=== PATIENT | female | born 1995 | race Caucasian/White ===

== ENCOUNTER 2020-09-02 13:46 | Emergency (ER) | payer MEDICAID, SELFPAY ==
[2020-09-02 14:03] VITALS: BP 122/0; BP 123/99; PULSE 70; PULSE 72; RESP 16; TEMP 36.6; O2SAT 100; BMI 25.7
--- NOTE | 2020-09-02 19:57 | PC.NURSE ---
pt bhas been sleeping in the waiting room soundly with no nausea or vomiting
--- NOTE | 2020-09-02 21:02 | PC.NURSE ---
pt woke, several family members attempted to come into the ER together to visit Pt in waiting area.. Staff asked family to please wait and have just one family with the pt. Pt approached the desk and states she wants something to eat, also complaining of nausea. Explained to pt that she should refrain from eating while having nausea to prevent vomiting. Pt became loud and agitated but did calm after speaking with nurse, then moments later continued to ask for food and report nausea. Agin reinforced that pt should not eat. Pt increasingly loud despite attempts to calm her. Security approached pt and family who were gathered at the entrance. Security asked family to step outside, pt became agitated, swearing and threatening. Securioty asked pt to leave. Pt became combative with security. Security escorted pt outside and then asked RN to call police. Pt outside screaming and swearing. RN called [employer]. Pt did not calm to return to ER for treatment.
== END 2020-09-02 21:13 | disposition left against medical advice (07) ==
PROVIDERS: Emergency Provider Emergency Medicine
DX: R11.2 Nausea with vomiting, unspecified (principal)
CPT/HCPCS: 99282

== ENCOUNTER 2021-07-11 13:58 | Emergency (ER) | payer OTHER, MEDICAID, SELFPAY ==
--- NOTE | ~2021-07-11 | CT_ITS ---
EXAMINATION: CT ABDOMEN AND PELVIS WITH CONTRAST CLINICAL INFORMATION: Vomiting and abdominal discomfort COMPARISON: None TECHNIQUE: Multidetector volumetric images were obtained from the superior aspect of the liver through the pubic symphysis following administration 85 mL of Omnipaque 350 intravenous contrast. Sagittal and coronal reformatted images were obtained on the technologist's workstation. Oral contrast: No This CT examination was performed using dose optimization techniques as appropriate, variously including the following: *Automated exposure control *Adjustment of mA and/or kV according to patient size (this includes techniques or standardized protocols for targeted exams where dose is matched to indication/reason for exam; i.e. extremities or head) *Use of iterative reconstruction technique DLP: 510 mGy-cm FINDINGS: LUNG BASES: The visualized lung bases are unremarkable. LIVER, GALLBLADDER, AND BILIARY TREE: The liver is normal in size, shape, and attenuation. No focal hepatic lesion or biliary ductal dilatation is present. The gallbladder is unremarkable with no evidence of radiopaque gallstones, gallbladder wall thickening, or obvious pericholecystic inflammatory changes. PANCREAS: Unremarkable. SPLEEN: Unremarkable. ADRENAL GLANDS: Unremarkable. KIDNEYS AND URETERS: The kidneys are normal in size, shape, and attenuation. No hydronephrosis, hydroureter, or calculi seen. No perinephric stranding. BLADDER: Unremarkable. GASTROINTESTINAL TRACT: The small and large bowel are unremarkable. It should be noted normal appendix is not visualized.. Mild dilatation of the duodenum. The aortic SMA distance is approximately 3 mm. An element of cracker cannot be excluded ABDOMINAL WALL: No significant hernia is appreciated. LYMPH NODES: Normal. VASCULAR: Unremarkable. PELVIC VISCERA: Minimal free fluid may be physiologic. OSSEOUS STRUCTURES: Unremarkable. CT/CT abdomen pelvis w con IMPRESSION: Some dilatation of the duodenum to the level of the midline crossing. The aortic to SMA distance is 3 mm. Element of nutcracker syndrome cannot be excluded. Bowel pattern is otherwise nonobstructing. No free fluid.
[2021-07-11 14:34] VITALS: BP 113/79; PULSE 51; RESP 19; TEMP 36.3; O2SAT 100; BMI 25.2
[2021-07-11] MEDS: Ondansetron ODT 4 MG TAB.RAPDIS TRANSLINGU (14:39)
[2021-07-11 16:05] LABS: MANUAL DIFF FLAG NO
[2021-07-11 16:07] LABS: Basophils Absolute Auto 0.1 X10*3/uL (0.0-0.2); Basophils Percent Auto 0.5 % (0-2); Imm Gran Abs Auto 0.04 X10*3/uL (0.00-0.03); Imm Gran Pct Auto 0.3 % (0.0-0.4); Lymphocytes Percent Auto 8.3 % (20-40); Mean Corpuscular HGB Conc 33.3 g/dl (31.0-35.0); Mean Corpuscular Hemoglobin 30.2 pg (27.0-33.0); Mean Corpuscular Volume 90.5 fL (80.0-98.0); Mean Platelet Volume 11.5 fL (9.4-12.3); Monocytes Absolute Auto 0.4 X10*3/uL (0.1-1.2); Monocytes Percent Auto 3.8 % (2-11); Neutrophils Absolute Auto 10.1 x10*3/uL (2.0-8.3); Neutrophils Percent Auto 87.1 % (45-73); Platelet Count 276 X10*3/uL (160-400); Red Blood Count 4.31 X10*6/uL (4.20-5.50); Red Cell Distribution Width 13.2 % (11.0-16.0); White Blood Count 11.6 X10*3/uL (4.8-10.8)
[2021-07-11 16:28] LABS: Alanine Aminotransferase 13 U/L (0-31); Albumin Level 4.7 g/dL (3.5-5.0); Alkaline Phosphatase 83 U/L (39-117); Anion Gap 16 (12-20); Aspartate Amino Transferase 17 U/L (5-31); Bilirubin Direct 0.2 mg/dL (0.0-0.5); Bilirubin Total 0.3 mg/dL (0.0-1.0); Blood Urea Nitrogen 9 mg/dL (9-16); Calcium 9.8 mg/dL (8.4-10.2); Carbon Dioxide 23 mmol/L (22-29); Chloride 105 mmol/L (96-108); Creatinine Clr Calc Pharmacy 119.3; Estimated Glomerular Filt Rate > 60; Glucose Random 124 mg/dL (60-115); Lipase 10 U/L (8-78); Potassium 3.8 mmol/L (3.3-5.1); Sodium 140 mmol/L (135-145); Total Protein 7.8 g/dL (6.5-8.0)
[2021-07-11 20:02] VITALS: BP 124/83; PULSE 58; RESP 18; TEMP 36.9; O2SAT 100
--- NOTE | 2021-07-11 20:08 | ED.GENADULT ---
HPI - General Adult General Chief complaint: Nausea/Vomiting/Diarrhea Stated complaint: back pain Time Seen by Provider: 07/11/21 18:31 Source: patient Mode of arrival: ambulatory Limitations: no limitations History of Present Illness HPI narrative: 26-year-old female is here today for complaining of nausea and vomiting that started yesterday. Patient reports that she vomited several times. Denies fever or chills. Reports to lower back pain. Today she reports that she was unable to urinate and she feels dehydrated. Patient unable to keep any fluids down. Reports of mid to low abdominal discomfort. Denies dyspepsia, dysphagia or odynophagia. Reports that in the last few days her bowels were lose. And usually she reports that her bowels are normal. Patient denies any ill contacts. Denies any travel. Denies any change in her diet. Onset (ago): day(s) Related Data Previous Rx's Medication Instructions Recorded ondansetron 4 mg disintegrating 4 mg PO Q8H PRN #7 tab 07/11/21 tablet Allergies Allergy/AdvReac Type Severity Reaction Status Date / Time No Known Allergies Allergy Unverified 05/10/20 17:05 Review of Systems Review of Systems: Constitutional : No Weight loss, No Fever, No Chills, No Night Sweats, No Fatigue, No Malaise ENT/Mouth : No Hearing loss, No Ear Pain, No Nasal Congestion, No Sinus Pain, No Hoarseness, No sore throat, No Rhinorrhea, No Swallowing Difficulty Eyes: No Eye Pain, No Swelling, No Redness, No Foreign Body, No Discharge, No Vision Changes Cardiovascular : No Chest Pain, No SOB, No Dyspnea on Exertion, No Orthopnea, No Edema, No Palpitations Respiratory : No Cough, No Sputum, No Wheezing, No Smoke Exposure, No Dyspnea Gastrointestinal : Nausea, Vomiting, No Diarrhea, No Constipation, abdominal Pain, No Hematochezia, No Melena Genitourinary : no irregular bleeding, Dysuria, No Urinary Frequency, No Hematuria, No Urinary Incontinence, No Urgency, No Flank Pain, No Urinary Flow Changes, No Hesitancy Musculoskeletal : No joint pain, No Myalgias, No Joint Swelling Skin : No Skin Lesions, No rash Neuro : No Weakness, No Numbness, No Paresthesias, No Loss of Consciousness, No Dizziness, No Headache Psych : No Anxiety/Panic, No Depression, No SI/HI/AH/VH, No Social Issues, Yes all other systems are reviewed and are negative PMFSH Past Medical History Medical History (Updated 07/11/21 @ 21:37 by Keyla Mauro [facility]) Asthma Social History Social History Advance Directives: No Advance Directives Information Provided: No Patient : No Physical Exam Vital Signs: Vital Signs: Last Vital Signs Temp 98.5 F 07/11/21 20:02 Pulse 58 07/11/21 20:02 Resp 18 07/11/21 20:02 BP 124/83 07/11/21 20:02 Pulse Ox 100 07/11/21 20:02 Body Mass Index 25.2 Const: General: healthy appearing, no acute distress and well developed Nutritional Appearance: well nourished Orientation/consciousness: patient oriented x3 HENMT: Head: Yes normal to inspection, Yes normocephalic and Yes atraumatic Face and sinus: Yes normal facial exam Mouth: Normal oral and palatal mucosa present Throat: Yes posterior oropharynx normal, Yes tonsils normal and Yes uvula midline Eyes: General: appearance normal, both eyes and all related structures Neck: Neck: Yes normal visual inspection, Yes full ROM and Yes trachea midline Thyroid: Thyroid normal Resp: Effort & Inspection: normal respiratory effort, able to speak in complete sentences, no tracheal deviation and symmetric chest movement Auscultation: clear to auscultation bilaterally Cardio: Jugular venous distension: no JVD Rate: regular rate Rhythm: regular rhythm Heart sounds: S1 normal heart sound present, S2 normal heart sound present, no gallops and no murmurs GI: Inspection: Yes normal to inspection and No distended Palpation (GI): Soft to palpation, not firm, nontender and No hepatosplenomegaly present Auscultation: normal bowel sounds : General: Yes no CVA tenderness Back/Spine/Pelvis: Back: no CVA tenderness Skin: General skin exam: elasticity normal, turgor normal and dry skin Neuro: General: patient oriented x3 Psych: Appearance: grossly normal Mental Status: mental status grossly normal Speech and movement: Normal speech and movement present Affect: normal affect Attitude: cooperative Thought process: Normal thought process present Thought content: Normal thought content present Insight: Good insight present (Psych) Judgement: Good judgement present (Psych) Course Course Course Narrative: 26-year-old female is here today for nausea and vomiting that started yesterday. Patient reports also that she has been having low back pain. Patient denies any injury, however she does report that she is bending over when she is vomiting and she has done that several times yesterday and today. Patient reports that she has not urinated much today. Patient denies any ill contacts. No travel, no change in her diet. Patient reports that usually she has a normal bowel movements and in the last few days her bowels were more loose, reports to have a mid to low abdominal pain that is not radiating anywhere. Patient has no CVA tenderness, no abdominal tenderness, will get urine, CBC shows WBC 11.6. Neutrophil 87.1. Normal kidney function as well as liver profile. Will medicate her with Zofran, IV fluids get urine for urinalysis and . Will order CT scan with IV contrast to rule out IBD, cholecystitis. Reevaluation(s) Reevaluation #1: Urinalysis is negative for any abnormalities. Awaiting CT scan results. Patient reports that she is feeling much better after the Zofran. Medical Decision Making Lab Data Result diagrams: 07/11/21 16:07/11/21 16:01 Labs: Lab Results 07/11/21 07/11/21 07/11/21 Range/Units 16: 16:01 20:53 WBC 11.6 H (4.8-10.8) X10*3/uL RBC 4.31 (4.20-5.50) X10*6/uL Hgb 13.0 (12.0-16.0) g/dl Hct 39.0 (37.0-47.0) % MCV 90.5 (80.0-98.0) fL MCH 30.2 (27.0-33.0) pg MCHC 33.3 (31.0-35.0) g/dl RDW 13.2 (11.0-16.0) % Plt Count 276 (160-400) X10*3/uL MPV 11.5 (9.4-12.3) fL Immature Gran % (Auto) 0.3 (0.0-0.4) % Neut % (Auto) 87.1 H (45-73) % Lymph % (Auto) 8.3 L (20-40) % [place] % (Auto) 3.8 (2-11) % Eos % (Auto) 0.0 (0-4) % Baso % (Auto) 0.5 (0-2) % Lymph # (Auto) 1.0 L (1.2-4.9) X10*3/uL [place] # (Auto) 0.4 (0.1-1.2) X10*3/uL Eos # (Auto) 0.0 (0.0-0.4) X10*3/uL Baso # (Auto) 0.1 (0.0-0.2) X10*3/uL Abs Immat Gran (auto) 0.04 H (0.00-0.03) X10*3/uL Absolute Neuts (auto) 10.1 H (2.0-8.3) x10*3/uL Absolute Nucleated RBC 0.000 (0.0-0.012) X10*3/uL Nucleated RBC % (auto) 0.0 (0.0-0.2) /100WBC Sodium 140 (135-145) mmol/L Potassium 3.8 (3.3-5.1) mmol/L Chloride 105 (96-108) mmol/L Carbon Dioxide 23 (22-29) mmol/L Anion Gap 16 (12-20) BUN 9 (9-16) mg/dL Creatinine 0.68 (0.5-1.4) mg/dL Estim Creat Clear Calc 119.3 Estimated GFR > 60 Random Glucose 124 H (60-115) mg/dL Calcium 9.8 (8.4-10.2) mg/dL Total Bilirubin 0.3 (0.0-1.0) mg/dL Direct Bilirubin 0.2 (0.0-0.5) mg/dL AST 17 (5-31) U/L ALT 13 (0-31) U/L Alkaline Phosphatase 83 (39-117) U/L Total Protein 7.8 (6.5-8.0) g/dL Albumin 4.7 (3.5-5.0) g/dL Lipase 10 (8-78) U/L Urine Color YELLOW Urine Appearance CLEAR Urine pH 8.0 (5.0-8.0) Ur Specific [place] 1.015 (1.005-1.025) Urine Protein 1+ H (NEG-TRACE) MG/DL Urine Glucose (UA) NEG (NEG) MG/DL Urine Ketones 5 (NEG) MG/DL Urine Blood NEG (NEG) Urine Nitrite NEG (NEG) Ur Leukocyte Esterase NEG (NEG) Urine RBC 0 (0) /HPF Urine WBC 0-2 (0-4) /HPF Ur Squamous Epith Cells 2+ /LPF Amorphous Sediment 1+ /LPF Urine Bacteria TRACE /LPF Urine Mucus 1+ /LPF Urine Test (NEGATIVE) COVID-19 (GAIL) (Negative) COVID-19 Clin Com 07/11/21 07/11/21 Range/Units 20:53 20:55 WBC (4.8-10.8) X10*3/uL RBC (4.20-5.50) X10*6/uL Hgb (12.0-16.0) g/dl Hct (37.0-47.0) % MCV (80.0-98.0) fL MCH (27.0-33.0) pg MCHC (31.0-35.0) g/dl RDW (11.0-16.0) % Plt Count (160-400) X10*3/uL MPV (9.4-12.3) fL Immature Gran % (Auto) (0.0-0.4) % Neut % (Auto) (45-73) % Lymph % (Auto) (20-40) % [place] % (Auto) (2-11) % Eos % (Auto) (0-4) % Baso % (Auto) (0-2) % Lymph # (Auto) (1.2-4.9) X10*3/uL [place] # (Auto) (0.1-1.2) X10*3/uL Eos # (Auto) (0.0-0.4) X10*3/uL Baso # (Auto) (0.0-0.2) X10*3/uL Abs Immat Gran (auto) (0.00-0.03) X10*3/uL Absolute Neuts (auto) (2.0-8.3) x10*3/uL Absolute Nucleated RBC (0.0-0.012) X10*3/uL Nucleated RBC % (auto) (0.0-0.2) /100WBC Sodium (135-145) mmol/L Potassium (3.3-5.1) mmol/L Chloride (96-108) mmol/L Carbon Dioxide (22-29) mmol/L Anion Gap (12-20) BUN (9-16) mg/dL Creatinine (0.5-1.4) mg/dL Estim Creat Clear Calc Estimated GFR Random Glucose (60-115) mg/dL Calcium (8.4-10.2) mg/dL Total Bilirubin (0.0-1.0) mg/dL Direct Bilirubin (0.0-0.5) mg/dL AST (5-31) U/L ALT (0-31) U/L Alkaline Phosphatase (39-117) U/L Total Protein (6.5-8.0) g/dL Albumin (3.5-5.0) g/dL Lipase (8-78) U/L Urine Color Urine Appearance Urine pH (5.0-8.0) Ur Specific [place] (1.005-1.025) Urine Protein (NEG-TRACE) MG/DL Urine Glucose (UA) (NEG) MG/DL Urine Ketones (NEG) MG/DL Urine Blood (NEG) Urine Nitrite (NEG) Ur Leukocyte Esterase (NEG) Urine RBC (0) /HPF Urine WBC (0-4) /HPF Ur Squamous Epith Cells /LPF Amorphous Sediment /LPF Urine Bacteria /LPF Urine Mucus /LPF Urine Test NEGATIVE (NEGATIVE) COVID-19 (GAIL) Negative (Negative) COVID-19 Clin Com See Note Discharge Plan Discharge Clinical Impression: Gastroenteritis Instructions: Acute Nausea and Vomiting (ED) Prescriptions: New ondansetron 4 mg tablet,disintegrating 4 mg PO Q8H PRN (Reason: nausea and vomiting) Qty: 7 RF: 0 Stand Alone Forms: Work/School Release
[2021-07-11] MEDS: 0.9 % Sodium Chloride 1,000 ML 999 ML IV (20:24)
[2021-07-11] MEDS: ondansetron HCL 4 MG/2 ML VIAL IVPUSH (20:24)
[2021-07-11 21:03] LABS: Appearance Urine CLEAR; Color Urine YELLOW; Glucose Urine UA NEG (NEG); Leukocyte Esterase Urine NEG (NEG); Nitrite Urine NEG (NEG); Specific Gravity - Urine 1.015 (1.005-1.025); UACC Culture Trigger NO; Urine Blood NEG (NEG); Urine Ketones 5 MG/DL (NEG); Urine Protein 1+ MG/DL (NEG-TRACE)
[2021-07-11 21:05] LABS: UPreg QC Valid YES; Urine Pregnancy NEGATIVE (NEGATIVE)
[2021-07-11 21:14] LABS: Amorphous Sediment Urine 1+ /LPF; Mucus Urine 1+ /LPF; Squamous Epithelial Cell Urine 2+ /LPF
[2021-07-11 21:15] LABS: Bacteria Urine TRACE /LPF; RBC Urine 0 /HPF (0); WBC Urine 0-2 /HPF (0-4)
[2021-07-11 21:18] LABS: COVID-19 Test Negative (Negative)
[2021-07-11] MEDS: iohexoL 350 MG/ML 100 ML INFUS..BTL IV (21:37)
[2021-07-11 22:51] VITALS: BP 122/76; PULSE 56; RESP 18; TEMP 36.7; O2SAT 100
== END 2021-07-11 23:02 | disposition home or self-care (01) ==
PROVIDERS: Nurse Practitioner Family; Emergency Provider Emergency Medicine
DX: K52.9 Noninfective gastroenteritis and colitis, unspecified (principal); R11.2 Nausea with vomiting, unspecified; M54.50 Low back pain, unspecified; Z20.822 Contact with and (suspected) exposure to COVID-19
CPT/HCPCS: 36415; 74177; 80048; 80076; 81001; 81003; 81025; 83690; 85025; 87635; 96361; 96374; 99283; 99284; J2405; Q9967

== ENCOUNTER 2022-07-14 14:06 | Emergency (ER) | payer OTHER, MEDICAID, SELFPAY ==
[2022-07-14 14:34] VITALS: BP 118/78; PULSE 66; O2SAT 99
[2022-07-14 14:55] VITALS: BP 112/67; PULSE 62; RESP 18; TEMP 37.2; O2SAT 98; BMI 25.8
[2022-07-14 15:20] LABS: Hematocrit 36.4 % (37.0-47.0); Hemoglobin 11.8 g/dl (12.0-16.0); Mean Corpuscular HGB Conc 32.4 g/dl (31.0-35.0); Mean Corpuscular Hemoglobin 29.6 pg (27.0-33.0); Mean Corpuscular Volume 91.5 fL (80.0-98.0); Mean Platelet Volume 10.6 fL (9.4-12.3); Platelet Count 267 X10*3/uL (160-400); Red Blood Count 3.98 X10*6/uL (4.20-5.50); Red Cell Distribution Width 12.8 % (11.0-16.0); White Blood Count 14.7 X10*3/uL (4.8-10.8)
[2022-07-14 15:34] VITALS: BP 118/79; PULSE 76; RESP 14; TEMP 36.8; O2SAT 98
[2022-07-14 15:38] LABS: Anion Gap 12 (12-20); Blood Urea Nitrogen 6 mg/dL (9-16); Calcium 9.3 mg/dL (8.4-10.2); Carbon Dioxide 27 mmol/L (22-29); Chloride 102 mmol/L (96-108); Creatinine Clr Calc Pharmacy 151.2; Estimated Glomerular Filt Rate > 60; Glucose Random 87 mg/dL (60-115); Potassium 4.1 mmol/L (3.3-5.1); Sodium 137 mmol/L (135-145)
--- NOTE | 2022-07-14 16:16 | ED_ITS ---
HPI - Skin/Abscess/Foreign Bdy General Chief complaint: Skin/Abscess/Foreign Body Stated complaint: L EYE PAIN PER EMS Time Seen by Provider: 07/14/22 15:50 Source: patient Mode of arrival: ambulatory Limitations: no limitations History of Present Illness HPI narrative: This is a 27-year-old female who has previously healthy who presents with left facial swelling, redness for the last 2-3 days. Per patient she had a large pimple on her left cheek which she tried to pop on her own. She was able to get a small amount of pus out. However that night increasing swelling and pain to the face. Seen her primary care referred into the emergency room for further evaluation. Patient reports swelling and pain up to the left eye with some eye discomfort. No vision changes. No drainage from the eye. No fevers or chills. Related Data Previous Rx's Medication Instructions Recorded ondansetron 4 mg disintegrating 4 mg PO Q8H PRN nausea and 07/11/21 tablet vomiting #7 tabs clindamycin HCl 300 mg capsule 300 mg PO Q8H 7 days #21 caps 07/14/22 Allergies Allergy/AdvReac Type Severity Reaction Status Date / Time No Known Allergies Allergy Unverified 05/10/20 17:05 Review of Systems Review of Systems: Yes all other systems are reviewed and are negative Constitutional: Constitutional: Reports no additional constitutional complaints, Denies body ache(s), Denies chills, Denies fever(s), Denies headache(s) and Denies weakness Eyes: Eyes: Reports no additional eye complaints, Denies change in vision, Denies eye discharge, Denies irritation, Reports eye pain and Denies photophobia ENT: Reports system reviewed and no additional complaints, except as documented, Denies dizziness, Reports facial pain, Denies headache(s), Denies nasal congestion, Denies nasal discharge and Denies neck pain Cardiovascular: Cardiovascular: Reports no additional cardiovascular complaints, Denies chest pain, Denies leg edema and Denies dyspnea Respiratory: Respiratory: Reports no additional respiratory complaints, Denies cough and Denies dyspnea Gastrointestinal: Gastrointestinal: Reports no additional gastrointestinal complaints, Denies abdominal pain, Denies diarrhea, Denies nausea and Denies vomiting Genitourinary: Genitourinary: Reports no additional female genitourinary complaints and Denies urinary incontinence Musculoskeletal: Musculoskeletal: Reports no additional musculoskeletal complaints, Denies back pain, Denies arthralgias, Denies joint swelling, Denies neck pain, Denies numbness and Denies tingling Integumentary/Breasts: Skin/Breast: Reports system reviewed and no additional complaints, except as docu and Denies rash Neurologic: Reports system reviewed and no additional complaints, except as documented, Denies Abnormal speech present, Denies dizziness, Denies headache(s), Denies numbness, Denies tingling and Denies weakness [facility] Past Medical History Attestation statement: The following information was validated with the patient. Source: old records reviewed and nursing notes reviewed Medical History Asthma Social History Social History Advance Directives: No Advance Directives Information Provided: No Physical Exam Vital Signs: Vital Signs: Last Vital Signs Temp 98.3 F 07/14/22 15:34 Pulse 76 07/14/22 15:34 Resp 14 07/14/22 15:34 BP 118/79 07/14/22 15:34 Pulse Ox 98 07/14/22 15:34 O2 Del Method 07/14/22 15:34 BMI result Body Mass Index 25.8 Const: General: cooperative, healthy appearing, comfortable and no acute distress Orientation/consciousness: patient oriented x3 Limitations: no limitations HEENT: Head: Yes normal to inspection Ears: hearing grossly normal bilaterally and TM's normal bilaterally General nose exam: Normal external nose present Face and sinus: Yes normal facial exam Face images: 1. There is a central area of crusting with surrounding erythema, warmth, induration. This extends to the lower eyelid on the left eye. Mouth: Normal oral and palatal mucosa present Throat: Yes posterior oropharynx normal, Yes tonsils normal and Yes uvula midline Eyes: General: appearance normal, both eyes and all related structures Visual South: normal visual south by confrontation Alignment and Position: alignment normal Periorbital: periorbital findings normal Eyelids: Yes other (Slight swelling to left lower eyelid) Conjunctivae: conjunctivae normal Sclerae: sclerae normal Corneas: corneas normal Pupils: Equal, round and reactive pupils present EOM: EOMs intact bilaterally Direct Ophthalmoscopy: normal light reflex, no photophobia, no papilledema, fundi normal bilaterally, anterior chamber normal and No photophobia Neck: Neck: Yes normal visual inspection, Yes full ROM, Yes no lymphadenopathy and Yes no meningeal signs Chest: Chest palpation & inspection: normal inspection of the chest Resp: Effort & Inspection: normal respiratory effort Auscultation: clear to auscultation bilaterally Cardio: Rate: regular rate Rhythm: regular rhythm Peripheral pulses: Peripheral pulses 2+ throughout GI: Inspection: Yes normal to inspection Palpation (GI): Soft to palpation and nontender Auscultation: normal bowel sounds Back/Spine/Pelvis: Thoracic/Lumbar Spine: thoracic and lumbar spine normal to inspection Skin: General skin exam: no rashes or lesions noted Neuro: General: patient oriented x3, no meningeal signs, no focal motor deficits and normal sensation to monofilament Cranial nerves: Yes Equal, round and reactive pupils present Cognition (Neuro): normal cognition Speech: No Abnormal speech present Gait exam (Neuro): Normal gait present Motor exam (neuro): 5/5 motor strength present throughout Extrem: General: Yes normal to inspection Course Course Course Narrative: Patient refusing CT scan. She does not want a wait for the CT scan. Additionally she does not want to remove her facial jewelry. She is aware that may she have a deeper abscess or osteomyelitis the facial bones secondary to cellulitis. This would require admission and IV antibiotics and possible surgery. Patient declining all these things. Will leave against medical advice. Will send oral antibiotics. Patient is welcome to return any time. Medications Administered Discontinued Medications Generic Name Dose Route Start Last Admin Trade Name Freq PRN Reason Stop Dose Admin Clindamycin Phosphate 600 mg in 50 mls @ 100 mls/hr 07/14/22 16:11 07/14/22 17:13 Cleocin IV 07/14/22 16:40 100 mls/hr ONCE ONE Administration MDM - Skin/Abscess/Foreign Bdy MDM Narrative Medical decision making narrative: 1611-This is a 27-year-old female who presents with left facial cellulitis. Patient will need labs including blood cultures and lactic acid. Will need CT facial bones to eval for deeper abscess. At this time infection suspected. Antibiotics ordered Low concern for orbital cellulitis with no vision changes or difficulty with eye movement. Medical Records Attestation: I reviewed the patient's medical records. Lab Data Attestation: I reviewed the patient's lab results. Result diagrams: 07/14/22 15:11 07/14/22 15:11 Labs: Lab Results 07/14/22 07/14/22 07/14/22 Range/Units 15:11 15:11 16:53 WBC 14.7 H (4.8-10.8) X10*3/uL RBC 3.98 L (4.20-5.50) X10*6/uL Hgb 11.8 L (12.0-16.0) g/dl Hct 36.4 L (37.0-47.0) % MCV 91.5 (80.0-98.0) fL MCH 29.6 (27.0-33.0) pg MCHC 32.4 (31.0-35.0) g/dl RDW 12.8 (11.0-16.0) % Plt Count 267 (160-400) X10*3/uL MPV 10.6 (9.4-12.3) fL Absolute Nucleated RBC 0.000 (0.0-0.012) X10*3/uL Nucleated RBC % (auto) 0.0 (0.0-0.2) /100WBC Sodium 137 (135-145) mmol/L Potassium 4.1 (3.3-5.1) mmol/L Chloride 102 (96-108) mmol/L Carbon Dioxide 27 (22-29) mmol/L Anion Gap 12 (12-20) BUN 6 L (9-16) mg/dL Creatinine 0.58 (0.5-1.4) mg/dL Estim Creat Clear Calc 151.2 Estimated GFR > 60 Random Glucose 87 (60-115) mg/dL Lactic Acid (0.5-2.0) mmol/L Calcium 9.3 (8.4-10.2) mg/dL Total Bilirubin 0.5 (0.0-1.0) mg/dL Direct Bilirubin 0.2 (0.0-0.5) mg/dL AST 14 (5-31) U/L ALT 10 (0-31) U/L Alkaline Phosphatase 75 (39-117) U/L Total Protein 7.0 (6.5-8.0) g/dL Albumin 4.2 (3.5-5.0) g/dL 11/21/22 Range/Units 16:53 WBC (4.8-10.8) X10*3/uL RBC (4.20-5.50) X10*6/uL Hgb (12.0-16.0) g/dl Hct (37.0-47.0) % MCV (80.0-98.0) fL MCH (27.0-33.0) pg MCHC (31.0-35.0) g/dl RDW (11.0-16.0) % Plt Count (160-400) X10*3/uL MPV (9.4-12.3) fL Absolute Nucleated RBC (0.0-0.012) X10*3/uL Nucleated RBC % (auto) (0.0-0.2) /100WBC Sodium (135-145) mmol/L Potassium (3.3-5.1) mmol/L Chloride (96-108) mmol/L Carbon Dioxide (22-29) mmol/L Anion Gap (12-20) BUN (9-16) mg/dL Creatinine (0.5-1.4) mg/dL Estim Creat Clear Calc Estimated GFR Random Glucose (60-115) mg/dL Lactic Acid 0.7 (0.5-2.0) mmol/L Calcium (8.4-10.2) mg/dL Total Bilirubin (0.0-1.0) mg/dL Direct Bilirubin (0.0-0.5) mg/dL AST (5-31) U/L ALT (0-31) U/L Alkaline Phosphatase (39-117) U/L Total Protein (6.5-8.0) g/dL Albumin (3.5-5.0) g/dL Discharge Plan Discharge Clinical Impression: Cellulitis Patient Disposition: Left Against Medical Advice Instructions: Cellulitis (ED), Against Medical Advice (ED), Warm Compress or Soak (ED) Additional Instructions: Warm compresses to the face Starting antibiotics tomorrow Return for vision changes, difficulty with eye movement, fever greater than 100.4 The recommendations were for you to have a CT scan of the face to rule out a deeper abscess as or infection that is in the bone of the face as well as the skin. These may require surgery and admission to the hospital. You declined these. You are welcome to return any time if you change your mind. Please come back for any worsening symptoms as well Prescriptions: New clindamycin HCl 300 mg capsule 300 mg PO Q8H 7 Days Qty: 21 0RF No Action ondansetron 4 mg tablet,disintegrating 4 mg PO Q8H PRN (Reason: nausea and vomiting) Qty: 7 0RF Referrals: Physician,Unknown J [Primary Care Provider] - 5 days (as needed) Stand Alone Forms: Against Medical Advice, Work/School Release
--- OUTSIDE RECORDS SUMMARY | 2022-07-14 16:38 | XMS_ITS | Continuity of Care Document ---
:1995 Author Organization [facility] Address [address] [place] [id number] Care Team Providers Name Role Phone Lyudmila Riley MD Primary Care Physician Encounter [facility] [place] [facility] [place] Date(s): 04/21/20 - 04/21/[address] [id number]- [facility] Discharge Disposition: A-D/C Home Attending Physician: Christina Brown DO Admitting Physician: Christina Brown DO Referring Physician: Not on Staff, Referring MD Allergies, Adverse Reactions, Alerts Substance Reaction Severity Status NKA Active Medications Doxycycline 100 mg, Maintenance, 09/10/18 8:32:09 EST Start Date: 09/10/18 Status: Orderedondansetron 4 mg oral tablet, disintegrating 1 tablet = 4 mg, By Mouth, Every 8 hours, PRN as needed for nausea/vomiting, # 9 tablet, 0 Refills, Maintenance, 04/21/20 16:06:00 EDT, DIS Tablet, [facility]/pharmacy #[id number], 165, cm, 09/10/18 8:24:00 EST, Height, 77.6, kg, 09/13/18 6:43:00 EST, Dry Weight Start Date: 04/21/20 Stop Date: 04/24/20 Status: OrderedPROzac 20 mg oral capsule 20 mg, By Mouth, Daily in AM, # 30 tablet, Refills 0, Tot. Refills 0, Maintenance, 11/17/17 9:06:25 EDT, Route to Pharmacy Electronically, [id number], [facility]/pharmacy #[id number] Start Date: 11/17/17 Stop Date: 12/17/17 Status: OrderedSEROquel 25 mg oral tablet 25 mg, By Mouth, 3 times a day, PRN, # 60 tablet, Refills 0, Tot. Refills 0, Maintenance, Anxiety Agitation, 11/17/17 9:06:35 EDT, Route to Pharmacy Electronically, [id number], [facility]/pharmacy #[id number] Start Date: 11/17/17 Stop Date: 12/17/17 Status: OrderedtraZODone 50 mg oral tablet 50 mg, By Mouth, Daily at bedtime, PRN, # 30 tablet, Refills 0, Tot. Refills 0, Maintenance, Insomnia, 11/17/17 9:06:39 EDT, Route to Pharmacy Electronically, [id number], [facility]/pharmacy #[id number] Start Date: 11/17/17 Stop Date: 12/17/17 Status: OrderedVivitrol = 380 mg, Intramuscular, Every 28 days, 0 Refills, Maintenance, 11/12/17 13:14:37 Start Date: 11/12/17 Status: Ordered Vital Signs Most recent to oldest 1 2 3 [Reference Range]: Oxygen Saturation [94-100 %] 100 % 100 % 100 % (04/21/20 4:58 PM) (04/21/20 3:32 PM) (04/21/20 2:0 6 PM) Pulse Rate [55-90 bpm] 71 bpm 52 bpm 81 bpm (04/21/20 4:58 PM) *L* (04/21/20 2:06 PM) (04/21/20 3:32 PM) Blood Pressure [90-138/55-84 101/61 mm Hg 101/65 mm Hg 115 /74 mm Hg mm Hg] (04/21/20 4:58 PM) (04/21/20 3:32 PM) (04/21/20 2:0 6 PM) Respiratory Rate [16-30 18 br/min 17 br/min 20 br/mi n br/min] (04/21/20 4:58 PM) (04/21/20 3:32 PM) (04/21/20 2:0 6 PM) Temperature [96.8-100.4 DegF] 98.1 DegF 98 DegF 97 .9 DegF (04/21/20 4:58 PM) (04/21/20 3:32 PM) (04/21/20 11: 27 AM) Mode of Delivery (Oxygen) Room air Room air Room a ir (04/21/20 4:58 PM) (04/21/20 3:32 PM) (04/21/20 2:0 6 PM) Blood pressure sites Arm, left Arm, left Arm, left (04/21/20 4:58 PM) (04/21/20 3:32 PM) (04/21/20 2:0 6 PM) Temperature Route Oral Oral Oral (04/21/20 4:58 PM) (04/21/20 3:32 PM) (04/21/20 11: 27 AM)
[2022-07-14 17:11] LABS: Lactic Acid 0.7 mmol/L (0.5-2.0)
[2022-07-14] MEDS: Clindamycin Phosphate/D5W 600 MG/50 ML PIGGYBACK 100 MG IV (17:13)
[2022-07-14 17:16] LABS: Alanine Aminotransferase 10 U/L (0-31); Albumin Level 4.2 g/dL (3.5-5.0); Alkaline Phosphatase 75 U/L (39-117); Aspartate Amino Transferase 14 U/L (5-31); Bilirubin Direct 0.2 mg/dL (0.0-0.5); Bilirubin Total 0.5 mg/dL (0.0-1.0)
--- NOTE | 2022-07-14 18:10 | PC.NURSE ---
pt is not wanting to stay for CT will be leaving [facility]
== END 2022-07-14 18:28 | disposition left against medical advice (07) ==
PROVIDERS: Emergency Medicine; Nurse Practitioner Family; Emergency Provider Internal Medicine
DX: L03.211 Cellulitis of face (principal); H57.12 Ocular pain, left eye
CPT/HCPCS: 36415; 80048; 80076; 83605; 85027; 87040; 96374; 99283; 99284

== ENCOUNTER 2022-07-15 09:35 | Emergency (ER) | payer OTHER, MEDICAID, SELFPAY ==
--- NOTE | ~2022-07-15 | CT_ITS ---
EXAMINATION: CT FACIAL BONES WITH CONTRAST CLINICAL INFORMATION: Left facial cellulitis. Evaluate for abscess. COMPARISON: None TECHNIQUE: Axial images through the facial bones following IV contrast. Patient received 85 mL Omnipaque [address] examination was performed using dose optimization techniques as appropriate, variously including the following: *Automated exposure control *Adjustment of mA and/or kV according to patient size (this includes techniques or standardized protocols for targeted exams where dose is matched to indication/reason for exam; i.e. extremities or head) *Use of iterative reconstruction technique DLP: 435 mGy-cm FINDINGS: There is diffuse skin thickening, soft tissue swelling with stranding of the fat over the left side of the face from the left mandible 2 inferior to the left orbit. There is an ill-defined low-attenuation area overlying the anterior left maxillary sinus measuring 1.5 cm for example axial image 117 series 2 and sagittal reconstructed image 54 questionable for small abscess. This is just deep to the skin. There is preseptal soft tissue swelling over the left orbit. Left orbital post septal soft tissues are normal. The right orbit is normal. There are small polyps or cysts in the bilateral maxillary sinuses. Paranasal sinuses, mastoid air cells and middle ears are otherwise clear. The temporomandibular joints are normal. No. Differential seen. The visualized salivary glands are normal. There is shotty diffuse cervical lymphadenopathy, left greater than right. No enlarged lymph nodes are seen and this is likely reactive. The nasal, Marcos and hypopharynx and larynx are normal. Thyroid gland is normal. Visualized intracranial structures are normal. Superior mediastinum and lung apices not included in the [id number]. The visualized cervical spine is normal. Vascular structures are normal. CT/CT facial bones w IV con IMPRESSION: Diffuse soft tissue swelling, skin thickening and edema of the left side of the face suggestive of cellulitis. There is question of a small abscess or fluid collection just deep to the skin over the medial anterior left maxillary sinus. Mild preseptal soft tissue swelling of the left inferior orbit. Post septal soft tissues are normal. Small polyps or cysts in the maxillary sinuses. Paranasal sinuses are otherwise clear. No dental abscess. Shotty diffuse cervical lymphadenopathy, left greater than right, likely reactive.
[2022-07-15 09:40] VITALS: BP 121/81; PULSE 81; RESP 16; TEMP 36.4; O2SAT 99; BMI 25.8
--- NOTE | 2022-07-15 09:48 | ED_ITS ---
HPI - Skin/Abscess/Foreign Bdy General Chief complaint: Skin/Abscess/Foreign Body Stated complaint: Cellulitis Time Seen by Provider: 07/15/22 09:42 Source: patient Mode of arrival: ambulatory Limitations: no limitations History of Present Illness HPI narrative: 27-year-old female with history of asthma here with left facial swelling and redness. Patient was seen here yesterday in the ER and diagnosed with left facial cellulitis. It was recommended that she get a CT scan of the face to evaluate for underlying abscess or osteomyelitis. Patient refuses and left against medical advice. She returns today for continued facial swelling and redness. She is willing to get a CT scan. No fevers or chills. Does report headache overnight. She did take a dose of clindamycin this morning prior to arrival Related Data Previous Rx's Medication Instructions Recorded ondansetron 4 mg disintegrating 4 mg PO Q8H PRN nausea and 07/11/21 tablet vomiting #7 tabs clindamycin HCl 300 mg capsule 300 mg PO Q8H 7 days #21 caps 07/14/22 Allergies Allergy/AdvReac Type Severity Reaction Status Date / Time No Known Allergies Allergy Unverified 05/10/20 17:05 Review of Systems Review of Systems: Yes all other systems are reviewed and are negative Constitutional: Constitutional: Reports no additional constitutional complaints, Denies body ache(s), Denies chills, Denies fever(s), Reports headache(s) and Denies weakness Eyes: Eyes: Reports no additional eye complaints and Denies change in vision ENT: Reports system reviewed and no additional complaints, except as documented, Denies dizziness, Reports headache(s), Denies nasal congestion, Denies nasal discharge and Denies neck pain Cardiovascular: Cardiovascular: Reports no additional cardiovascular complaints, Denies chest pain, Denies leg edema and Denies dyspnea Respiratory: Respiratory: Reports no additional respiratory complaints, Denies cough and Denies dyspnea Gastrointestinal: Gastrointestinal: Reports no additional gastrointestinal complaints, Denies abdominal pain, Denies diarrhea, Denies nausea and Denies vomiting Genitourinary: Genitourinary: Reports no additional female genitourinary complaints and Denies urinary incontinence Musculoskeletal: Musculoskeletal: Reports no additional musculoskeletal complaints, Denies back pain, Denies arthralgias, Denies joint swelling, Denies neck pain, Denies numbness and Denies tingling Integumentary/Breasts: Skin/Breast: Reports system reviewed and no additional complaints, except as docu, Reports swelling and Denies rash Neurologic: Reports system reviewed and no additional complaints, except as documented, Denies Abnormal speech present, Denies dizziness, Reports headache(s), Denies numbness, Denies tingling and Denies weakness PMFSH Past Medical History Attestation statement: The following information was validated with the patient. Source: old records reviewed and nursing notes reviewed Medical History Asthma Social History Social History Advance Directives: No Advance Directives Information Provided: No Physical Exam Vital Signs: Vital Signs: Last Vital Signs Temp 97.6 F 07/15/22 09:40 Pulse 81 07/15/22 09:40 Resp 16 07/15/22 09:40 BP 121/81 07/15/22 09:40 Pulse Ox 99 07/15/22 09:40 O2 Del Method 07/15/22 09:40 BMI result Body Mass Index 25.8 Const: General: cooperative, healthy appearing, comfortable and no acute distress Orientation/consciousness: patient oriented x3 Limitations: no limitations HEENT: Head: Yes normal to inspection Ears: hearing grossly normal bilaterally and TM's normal bilaterally General nose exam: Normal external nose present Face and sinus: Yes normal facial exam Face images: 1. There is swelling, redness with a central area of crusting and tenderness with induration and no fluctuance. This extends to the lower eyelid Mouth: Normal oral and palatal mucosa present Throat: Yes posterior oropharynx normal, Yes tonsils normal and Yes uvula midline Eyes: General: appearance normal, both eyes and all related structures Visual South: normal visual south by confrontation Alignment and Position: alignment normal Periorbital: periorbital findings normal Eyelids: Yes other (Left lower eyelid swelling) Conjunctivae: conjunctivae normal Sclerae: sclerae normal Pupils: Equal, round and reactive pupils present EOM: EOMs intact bilaterally Direct Ophthalmoscopy: normal light reflex and no photophobia Neck: Neck: Yes normal visual inspection Chest: Chest palpation & inspection: normal inspection of the chest Resp: Effort & Inspection: normal respiratory effort Auscultation: clear to auscultation bilaterally Cardio: Rate: regular rate Rhythm: regular rhythm Peripheral pulses: Peripheral pulses 2+ throughout GI: Inspection: Yes normal to inspection Palpation (GI): Soft to palpation and nontender Auscultation: normal bowel sounds Back/Spine/Pelvis: Thoracic/Lumbar Spine: thoracic and lumbar spine normal to inspection Skin: General skin exam: no rashes or lesions noted Neuro: General: patient oriented x3, no focal motor deficits and normal sensation to monofilament Cranial nerves: Yes Equal, round and reactive pupils present Cognition (Neuro): normal cognition Speech: No Abnormal speech present Gait exam (Neuro): Normal gait present Motor exam (neuro): 5/5 motor strength present throughout Extrem: General: Yes normal to inspection Course Course Course Narrative: CT shows IMPRESSION: Diffuse soft tissue swelling, skin thickening and edema of the left side of the face suggestive of cellulitis. There is question of a small abscess or fluid collection just deep to the skin over the medial anterior left maxillary sinus. Mild preseptal soft tissue swelling of the left inferior orbit. Post septal soft tissues are normal. Small polyps or cysts in the maxillary sinuses. Paranasal sinuses are otherwise clear. No dental abscess. Shotty diffuse cervical lymphadenopathy, left greater than right, likely reactive. -patient will leukocytosis which is actually improving from previous. No fever. Overall patient nontoxic appearing. Patient received dose of clindamycin IV in here in the ER. She can go home with oral antibiotics and return in 48 hours if no improvement in symptoms or any worsening symptoms. His case was discussed with Dr. Hawley who agrees with plan of care. Reviewed worrisome signs and symptoms when to return. Comfortable plan for discharge home. Medications Administered Generic Name Dose Route Start Last Admin Trade Name Freq PRN Reason Stop Dose Admin Clindamycin Phosphate 600 mg in 50 mls @ 100 mls/hr 07/15/22 12:28 07/15/22 12:33 Cleocin IV 07/15/22 12:57 100 mls/hr ONCE ONE Administration Discontinued Medications Generic Name Dose Route Start Last Admin Trade Name Freq PRN Reason Stop Dose Admin Acetaminophen 975 mg 07/15/22 09:46 07/15/22 10:29 Acetaminophen 325 Mg Tablet PO 07/15/22 09:47 975 mg ONCE ONE Administration Iohexol 85 ml 07/15/22 10:58 07/15/22 10:59 Iohexol 350 Mg/Ml 100 Ml Infus..Btl IV 07/15/22 10:59 85 ml ONCE ONE Administration MDM - Skin/Abscess/Foreign Bdy MDM Narrative Medical decision making narrative: Patient returns for continued left facial cellulitis after leaving against medical advice yesterday with a was recommended she have a CT to rule out for underlying abscess or osteomyelitis. Patient did receive 1 dose of IV antibiotics yesterday in the emergency room and took 1 dose of oral antibiotics this morning prior to arrival. Will need labs, IV, CT facial bones with contrast Overall patient nontoxic. No evidence of orbital cellulitis. Medical Records Attestation: I reviewed the patient's medical records. Lab Data Attestation: I reviewed the patient's lab results. Result diagrams: 07/15/22 10:21 07/15/22 10:21 Labs: Lab Results 07/15/22 07/15/22 07/15/22 Range/Units 10:21 10:21 10:21 WBC 13.2 H (4.8-10.8) X10*3/uL RBC 4.17 L (4.20-5.50) X10*6/uL Hgb 12.3 (12.0-16.0) g/dl Hct 37.9 (37.0-47.0) % MCV 90.9 (80.0-98.0) fL MCH 29.5 (27.0-33.0) pg MCHC 32.5 (31.0-35.0) g/dl RDW 12.9 (11.0-16.0) % Plt Count 290 (160-400) X10*3/uL MPV 10.7 (9.4-12.3) fL Immature Gran % (Auto) 0.2 (0.0-0.4) % Neut % (Auto) 70.3 (45-73) % Lymph % (Auto) 17.9 L (20-40) % Stonewall % (Auto) 8.1 (2-11) % Eos % (Auto) 3.0 (0-4) % Baso % (Auto) 0.5 (0-2) % Lymph # (Auto) 2.4 (1.2-4.9) X10*3/uL [place]wall # (Auto) 1.1 (0.1-1.2) X10*3/uL Eos # (Auto) 0.4 (0.0-0.4) X10*3/uL Baso # (Auto) 0.1 (0.0-0.2) X10*3/uL Abs Immat Gran (auto) 0.02 (0.00-0.03) X10*3/uL Absolute Neuts (auto) 9.3 H (2.0-8.3) x10*3/uL Absolute Nucleated RBC 0.000 (0.0-0.012) X10*3/uL Nucleated RBC % (auto) 0.0 (0.0-0.2) /100WBC Sodium 139 (135-145) mmol/L Potassium 3.9 (3.3-5.1) mmol/L Chloride 102 (96-108) mmol/L Carbon Dioxide 25 (22-29) mmol/L Anion Gap 16 (12-20) BUN 7 L (9-16) mg/dL Creatinine 0.63 (0.5-1.4) mg/dL Estim Creat Clear Calc 139.2 Estimated GFR > 60 Random Glucose 90 (60-115) mg/dL Lactic Acid 0.8 (0.5-2.0) mmol/L Calcium 9.3 (8.4-10.2) mg/dL Urine Test (NEGATIVE) COVID-19 (GAIL) (Negative) COVID-19 Clin Com 07/15/22 07/15/22 Range/Units 10:21 11:00 WBC (4.8-10.8) X10*3/uL RBC (4.20-5.50) X10*6/uL Hgb (12.0-16.0) g/dl Hct (37.0-47.0) % MCV (80.0-98.0) fL MCH (27.0-33.0) pg MCHC (31.0-35.0) g/dl RDW (11.0-16.0) % Plt Count (160-400) X10*3/uL MPV (9.4-12.3) fL Immature Gran % (Auto) (0.0-0.4) % Neut % (Auto) (45-73) % Lymph % (Auto) (20-40) % Stonewall % (Auto) (2-11) % Eos % (Auto) (0-4) % Baso % (Auto) (0-2) % Lymph # (Auto) (1.2-4.9) X10*3/uL Stonewall # (Auto) (0.1-1.2) X10*3/uL Eos # (Auto) (0.0-0.4) X10*3/uL Baso # (Auto) (0.0-0.2) X10*3/uL Abs Immat Gran (auto) (0.00-0.03) X10*3/uL Absolute Neuts (auto) (2.0-8.3) x10*3/uL Absolute Nucleated RBC (0.0-0.012) X10*3/uL Nucleated RBC % (auto) (0.0-0.2) /100WBC Sodium (135-145) mmol/L Potassium (3.3-5.1) mmol/L Chloride (96-108) mmol/L Carbon Dioxide (22-29) mmol/L Anion Gap (12-20) BUN (9-16) mg/dL Creatinine (0.5-1.4) mg/dL Estim Creat Clear Calc Estimated GFR Random Glucose (60-115) mg/dL Lactic Acid (0.5-2.0) mmol/L Calcium (8.4-10.2) mg/dL Urine Test NEGATIVE (NEGATIVE) COVID-19 (GAIL) Negative (Negative) COVID-19 Clin Com See Note Imaging Data ct facial bones: Attestation: I personally reviewed and interpreted this imaging study as follows: Radiologist's impression: INDINGS: There is diffuse skin thickening, soft tissue swelling with stranding of the fat over the left side of the face from the left mandible 2 inferior to the left orbit. There is an ill-defined low-attenuation area overlying the anterior left maxillary sinus measuring 1.5 cm for example axial image 117 series 2 and sagittal reconstructed image 54 questionable for small abscess. This is just deep to the skin. There is preseptal soft tissue swelling over the left orbit. Left orbital post septal soft tissues are normal. The right orbit is normal. There are small polyps or cysts in the bilateral maxillary sinuses. Paranasal sinuses, mastoid air cells and middle ears are otherwise clear. The temporomandibular joints are normal. No. Differential seen. The visualized salivary glands are normal. There is shotty diffuse cervical lymphadenopathy, left greater than right. No enlarged lymph nodes are seen and this is likely reactive. The nasal, Marcos and hypopharynx and larynx are normal. Thyroid gland is normal. Visualized intracranial structures are normal. Superior mediastinum and lung apices not included in the [id number]. The visualized cervical spine is normal. Vascular structures are normal. CT/CT facial bones w IV con IMPRESSION: Diffuse soft tissue swelling, skin thickening and edema of the left side of the face suggestive of cellulitis. There is question of a small abscess or fluid collection just deep to the skin over the medial anterior left maxillary sinus. Mild preseptal soft tissue swelling of the left inferior orbit. Post septal soft tissues are normal. Small polyps or cysts in the maxillary sinuses. Paranasal sinuses are otherwise clear. No dental abscess. Shotty diffuse cervical lymphadenopathy, left greater than right, likely reactive. Discharge Plan Discharge Clinical Impression: Cellulitis Patient Disposition: Home, Self-Care Instructions: Cellulitis (ED), Warm Compress or Soak (ED) Additional Instructions: Start taking clindamycin tomorrow. Return if no improvement in 48 hours of antibiotics, fever, increasing swelling or redness. Apply triple antibiotic ointment to the face Prescriptions: No Action ondansetron 4 mg tablet,disintegrating 4 mg PO Q8H PRN (Reason: nausea and vomiting) Qty: 7 0RF clindamycin HCl 300 mg capsule 300 mg PO Q8H 7 Days Qty: 21 0RF Referrals: Physician,None [Primary Care Provider] - 1 week
[2022-07-15 10:29] LABS: MANUAL DIFF FLAG NO
[2022-07-15] MEDS: Acetaminophen 325 MG TABLET 975 MG PO (10:29)
[2022-07-15 10:32] LABS: Basophils Absolute Auto 0.1 X10*3/uL (0.0-0.2); Basophils Percent Auto 0.5 % (0-2); Eosinophils Absolute Auto 0.4 X10*3/uL (0.0-0.4); Hematocrit 37.9 % (37.0-47.0); Hemoglobin 12.3 g/dl (12.0-16.0); Imm Gran Abs Auto 0.02 X10*3/uL (0.00-0.03); Imm Gran Pct Auto 0.2 % (0.0-0.4); Lymphocytes Absolute Auto 2.4 X10*3/uL (1.2-4.9); Lymphocytes Percent Auto 17.9 % (20-40); Mean Corpuscular HGB Conc 32.5 g/dl (31.0-35.0); Mean Corpuscular Hemoglobin 29.5 pg (27.0-33.0); Mean Corpuscular Volume 90.9 fL (80.0-98.0); Mean Platelet Volume 10.7 fL (9.4-12.3); Monocytes Absolute Auto 1.1 X10*3/uL (0.1-1.2); Monocytes Percent Auto 8.1 % (2-11); Neutrophils Absolute Auto 9.3 x10*3/uL (2.0-8.3); Neutrophils Percent Auto 70.3 % (45-73); Platelet Count 290 X10*3/uL (160-400); Red Blood Count 4.17 X10*6/uL (4.20-5.50); Red Cell Distribution Width 12.9 % (11.0-16.0); White Blood Count 13.2 X10*3/uL (4.8-10.8)
[2022-07-15 10:40] LABS: Lactic Acid 0.8 mmol/L (0.5-2.0)
[2022-07-15 10:41] LABS: UPreg QC Valid YES
[2022-07-15 10:43] LABS: Urine Pregnancy NEGATIVE (NEGATIVE)
[2022-07-15 10:48] LABS: Anion Gap 16 (12-20); Blood Urea Nitrogen 7 mg/dL (9-16); Calcium 9.3 mg/dL (8.4-10.2); Carbon Dioxide 25 mmol/L (22-29); Chloride 102 mmol/L (96-108); Creatinine Clr Calc Pharmacy 139.2; Estimated Glomerular Filt Rate > 60; Glucose Random 90 mg/dL (60-115); Potassium 3.9 mmol/L (3.3-5.1); Sodium 139 mmol/L (135-145)
[2022-07-15] MEDS: iohexoL 350 MG/ML 100 ML INFUS..BTL 85 ML IV (10:59)
[2022-07-15 11:20] LABS: COVID-19 Test Negative (Negative); IDNOW Serial# BCCEAD1C
[2022-07-15] MEDS: Clindamycin Phosphate/D5W 600 MG/50 ML PIGGYBACK 100 MG IV (12:33)
== END 2022-07-15 13:28 | disposition home or self-care (01) ==
PROVIDERS: Nurse Practitioner Family; Emergency Provider Emergency Medicine
DX: L03.211 Cellulitis of face (principal); Z20.822 Contact with and (suspected) exposure to COVID-19; Z79.899 Other long term (current) drug therapy
CPT/HCPCS: 36415; 70487; 80048; 81025; 83605; 85025; 87040; 87635; 96374; 99284; Q9967

== ENCOUNTER 2024-03-15 13:42 | Outpatient (REF) | payer MEDICAID, SELFPAY ==
--- NOTE | ~2024-03-15 | XR_ITS ---
EXAMINATION: XR LUMBOSACRAL SPINE WITH OBLIQUES CLINICAL INFORMATION: Severe acute low back pain. COMPARISON: None available. TECHNIQUE: AP, both oblique, and lateral views of the lumbar spine. Lateral view of the lumbosacral junction. FINDINGS: Mild to moderate disc space narrowing at L5-S1. Disc spaces otherwise appear preserved. The disc spaces otherwise appear preserved. The vertebral bodies and posterior elements appear unremarkable. The vertebral alignment appears unremarkable. The paraspinal soft tissues appear unremarkable. XR/XR lumbar spine 4V min IMPRESSION: Mild to moderate disc space narrowing at L5-S1.
== END 2024-03-15 13:43 | disposition home or self-care (01) ==
LOC: HO.XRAY 13:42
PROVIDERS: Visit Provider Pediatrics
DX: M54.50 Low back pain, unspecified (principal)
CPT/HCPCS: 72110

== ENCOUNTER 2024-11-17 16:12 | Outpatient (REF) | payer OTHER, SELFPAY ==
[2024-11-17 18:05] LABS: Hematocrit 37.6 % (37.0-47.0); Hemoglobin 12.5 g/dl (12.0-16.0); Mean Corpuscular HGB Conc 33.2 g/dl (31.0-35.0); Mean Corpuscular Hemoglobin 28.9 pg (27.0-33.0); Platelet Count 309 X10*3/uL (160-400); Red Blood Count 4.32 X10*6/uL (4.20-5.50); Red Cell Distribution Width 12.7 % (11.0-16.0); White Blood Count 7.2 X10*3/uL (4.8-10.8)
[2024-11-17 18:26] LABS: Alanine Aminotransferase 9 U/L (0-31); Albumin Level 4.2 g/dL (3.5-5.0); Anion Gap 9 (12-20); Aspartate Amino Transferase 22 U/L (5-31); Bilirubin Total 0.4 mg/dL (0.0-1.0); Blood Urea Nitrogen 9 mg/dL (9-16); Carbon Dioxide 24 mmol/L (22-29); Chloride 108 mmol/L (96-108); Estimated Glomerular Filt Rate > 60; Glucose Random 78 mg/dL (60-115); Sodium 137 mmol/L (135-145); Total Protein 7.3 g/dL (6.5-8.0)
[2024-11-17 18:48] LABS: Alkaline Phosphatase 72 U/L (39-117)
[2024-11-18 08:12] LABS: HBS Num1 5.05 mIU/mL (0-7.99); HBc Num1 0.14 S/CO (0.00-0.79); HBsAGNum1 0.33 S/CO (0.00-0.99); HIV AB/AG Nonreactive (Nonreactive); HIV Num 1 0.09 S/CO (0.00-0.99); Hepatitis B Core Antibody Nonreactive (Nonreactive); Hepatitis B Surface Antigen Negative (Negative); ~HepC Num1 0.36 S/CO (0.00-0.79); ~Hepatitis B Surface Antibody NONREACTIVE (Nonreactive); ~Hepatitis C Antibody Nonreactive (Nonreactive)
== END 2024-11-17 16:13 | disposition home or self-care (01) ==
LOC: HO.HHCL 16:12
PROVIDERS: Visit Provider Nurse Practitioner Family
DX: Z00.00 Encounter for general adult medical examination without abnormal findings (principal)
CPT/HCPCS: 36415; 80053; 85027; 86704; 86706; 86803; 87340; 87389

== ENCOUNTER 2024-11-22 11:08 | Outpatient (REF) | payer OTHER, SELFPAY ==
--- OUTSIDE RECORDS SUMMARY | 2024-11-22 19:08 | XMS_ITS | Clinical Summary ---
Author Organization [employer] Address [address] [facility] 7[address] [place] [address] Care Team Providers Care Electrodynamicist Name Role Phone [facility] Primary Care Provider [phone] Allergies Active Allergy Reactions Criticality Noted Date [...] days no better advised to come to [facility] for revalution and to consider MRI -gave [...] to engage PLAN: 1. Follow up with [facility]: Recommended for follow-up: during OBAT appts 2. Patient goal is to stat treatment to recovery and engage in services 3. Behavioral Recommendations a. Ind. Therapy b. Use of coping skills c. Keep OBAT appts Encounters Date Type Department Care Team Description 11/22/2024 10:30 AM EDT Procedure Visit [address] [address] Mishel Mishra CNM Cervical cancer screening (Primary Dx); Night sweats; Screening examination for venereal disease; Libido, decreased 11/22/2024 Travel 11/09/2024 2:45 PM EDT Office Visit [address] [address] Coni Salter FNP Encounter for adult wellness visit (Primary Dx); Encounter for immunization 11/09/2024 Travel 11/01/2024 Patient Outreach [address] [address] Jacqui Velazquez FNP Pre-visit Planning (SDOH Screening negative and Tobacco screening negative) 10/28/2024 Telephone [facility] [address] [place] [address] Jacqui Velazquez FNP chartprep 10/17/[address] [address] Jacqui Velazquez FNP Paperwork/Forms ([facility] immunization form) from Last 3 Months Immunizations Name Administration Dates Next Due DTP 06/28/1999, 9,1997,09/12 DTaP 08/06/2001 HPV, Quadrivalent 08/05/2013,07/01/2010,03/09/20 09 Hep B, Adolescent or Pediatric 10/21/2000,1998,04/22/1999 IPV 08/06/2001 Influenza injectable quadriv alent preservative free 05/29/2022 Influenza, IIV3, injectable 07/01/2010 Influenza, seasonal, injecta ble, preservative free 06/05/2015,06/30/2011 MMR 08/06/2001,11/10/1998 Meningococcal MCV4P [id number] 06/05/2015,07/01/20 10 Moderna Covid-19 Vaccine 12+ 11/11/2021,03/13/20 21,02/04/2021 Novel [id number], preservative-free 07/02/2009 OPV, Trivalent 1997,1997,1997 Tdap 11/09/2024,03/09/2009 [...] Procedure Name Priority Date/Time Associated Diagnosis Comments TSH W/REFLEX TO FT4 Routine 11/22/2024 1 1:18 AM EDT Night sweats HIV 1/2 ANTIGEN/ANTIBODY, FOURTH GENERATION W/RFL Routine [...] visit from Last 3 Months Results * TSH W/Reflex to FT4 (11/22/2024 11:18 AM EDT) TSH reflex Free T4 1.15 0.32 - 4.0 uIU/mL [facility] Blood Venous blood specimen / Unknown 11/22/2024 11:18 AM EDT 11/22/2024 1:15 PM EDT us Mishel Mishra [facility] LAB BLOOD ORDERABLES Mariela l Result [facility] [address] [place] [phone] * Hepatitis C Antibody with Reflex to HCV, RNA, Quantitative, Real-Time PCR (11/17/2024 4:15 PM EDT) Hepatitis C Antibody Nonreactive Nonreactive [facility] Comment:Antibodies to HCV no t detected; does not exclude early acuteHCV infection. Blood Venous blood specimen / Unknown 11/17/2024 4:15 PM EDT 11/17/2024 5:58 PM EDT [facility] Final Res ult Performing Organization Address [facility]/ZIP Co de Phone Number [facility] [address] [place] [phone] * Hepatitis B surface antigen, EIA (11/17/2024 4:15 PM EDT) Pathologist [facility] Hepatitis B Surface Ag Negative Negative [facility] Blood Venous blood specimen / Unknown 11/17/2024 4:15 PM EDT 11/17/2024 5:58 PM EDT [facility] ORDERABLES Final Res ult Performing Organization Address [facility] Co de Phone Number [facility] [address] [place] [phone] * Hepatitis B Core Antibody, Total (11/17/2024 4:15 PM EDT) Pathologist [facility] Hepatitis B Core Antibody Nonreactive Nonreactive [facility] Blood Venous blood specimen / Unknown 11/17/2024 4:15 PM EDT 11/17/2024 5:58 PM EDT [facility] Final Res ult Performing Organization Address [facility] Co de Phone Number [facility] [address] [place] [phone] * HIV-1/2 Antigen and Antibodies, Fourth Generation, with Reflexes (11/17/2024 4:15 PM EDT) HIV AB/AG Nonreactive Nonreactive [facility] Comment:HIV-1 p24 Ag and/or HIV-1/HIV-2 Ab not detected.A test result that is nonreactive does not exclude thepossibility of exposure to or infection with HIV-1 and/orHIV-2. Nonreactive results in this assay for individualswith prior exposure to HIV-1 and/or HIV-2 may be due toantigen and antibody levels that are below the limit ofdetection of this assay.The [employer] HIV Ag/Ab Combo assay result andsupplemental assay results should be interpreted inconjunction with the patient's clinical presentation,history and other laboratory results. If the results areinconsistent with clinical evidence, additional testing issuggested to confirm the result. Blood Venous blood specimen / Unknown 11/17/2024 4:15 PM EDT 11/17/2024 5:58 PM EDT [facility] LAB BLOOD ORDERABLES Final Res ult Performing Organization Address [facility]/ZIP Co de Phone Number [facility] [address] [place] [phone] * Hepatitis B Surface Antibody, Qualitative (11/17/2024 4:15 PM EDT) Pathologist [facility] ~Hepatitis B Surface Antibody NONREACTIVE Nonreactive [facility] Comment:Nonreactive: < 8.00 mIU/mL Blood Venous blood specimen / Unknown 11/17/2024 4:15 PM EDT 11/17/2024 5:58 PM EDT [facility] LAB BLOOD ORDERABLES Final Res ult Performing Organization Address [facility]/ZIP Co de Phone Number [facility] [address] [place] [phone] * CBC (11/17/2024 4:15 PM EDT) White Blood Count 7.2 4.8 - 10.8 X10*3/uL [facility] Red Blood Count 4.32 4.20 - 5.50 X10*6/uL [facility] Hemoglobin 12.5 12.0 - 16.0 g/dl [facility] Hematocrit 37.6 37.0 - 47.0 % [facility] Mean Corpuscular Volume 87.0 80.0 - 98.0 fL [facility] Mean Corpuscular Hemoglobin 28.9 27.0 - 33.0 pg [facility] Mean Corpuscular HGB Conc 33.2 31.0 - 35.0 g/dl [facility] Red Cell Distribution Width 12.7 11.0 - 16.0 % [facility] Platelet Count 309 160 - 400 X10*3/uL [facility] Mean Platelet Volume 11.0 9.4 - 12.3 fL [facility] NRBC Pct Auto 0.0 0.0 - 0.2 /100WBC [facility] NRBC Abs Auto 0.000 0.0 - 0.012 X10*3/uL [facility] Blood Venous blood specimen / Unknown 11/17/2024 4:15 PM EDT 11/17/2024 5:58 PM EDT us Coni Salter CARDIAC CATH RN LAB BLOOD ORDERABLES Final Res ult [facility] [address] [place] [address] [phone] * (ABNORMAL) Comprehensive Metabolic Panel (11/17/2024 4:15 PM EDT) Sodium 137 135 - 145 mmol/L [facility] Potassium 4.0 3.3 - 5.1 mmol/L [facility] Chloride 108 96 - 108 mmol/L [facility] Carbon Dioxide 24 22 - 29 mmol/L [facility] Anion Gap 9(L) 12 - 20 [facility] Urea Nitrogen (BUN) 9 9 - 16 mg/dL [facility] Creatinine, Serum 0.63 0.5 - 1.4 mg/dL [facility] Estimated Glomerular Filt Rate >60 [facility] Comment:Chronic Kidney Disea se: Estimated GFR < 60 mL/min/1.09k3Ktfmbc Kidney Disease: Estimated GFR < 15 mL/min/1.73m2 Glucose 78 60 - 115 mg/dL [facility] Calcium 9.0 8.4 - 10.2 mg/dL [facility] Bilirubin, Total 0.4 0.0 - 1.0 mg/dL [facility] Aspartate Amino Transferase 22 5 - 31 U/L [facility] Alanine Aminotransferase 9 0 - 31 U/L [facility] Total Protein 7.3 6.5 - 8.0 g/dL [facility] Albumin Level 4.2 3.5 - 5.0 g/dL [facility] Alkaline Phosphatase 72 39 - 117 U/L [facility] Blood Venous blood specimen / Unknown 11/17/2024 4:15 PM EDT 11/17/2024 5:58 PM EDT us Coni Salter CARDIAC CATH RN LAB BLOOD ORDERABLES Final Res ult Performing Organization Address City/State/[facility] Co de Phone Number [facility] [address] [place] [phone] from Last 3 Months Insurance [facility] Care Teams Electrodynamicist Relationship Specialty Start Date End Date Jacqui Velazquez FNP [address] [place] [phone] PCP - General Family Medicine 06/03/22
--- OUTSIDE RECORDS SUMMARY | 2024-11-22 19:08 | XMS_ITS | Encounter Summary ---
Author Organization [employer] Address [address] [facility] [address] [place] [address] Care Team Providers Care Corporate Consultant Name Role Phone [place] [facility] Primary Care Provider [phone] Encounter Details Date Type Department Care Team [...] documented as of this encounter Care Teams Corporate Consultant Relationship Specialty Start Date End Date Jacqui Velazquez FNP [address] [place] [phone] PCP - General Family Medicine 06/03/22 documented as of this encounter
--- OUTSIDE RECORDS SUMMARY | 2024-11-22 19:08 | XMS_ITS | Encounter Summary ---
Author Organization [employer] Address [address] [place] [address] [address] [place] [address] Care Team Providers Care Clerk Telegraph Service Name Role Phone [facility] Primary Care Provider [phone] Encounter Details Date Type Department Care Team ([facility] st Contact Info) Description 12/29/2022 Telephone [facility] MEDICINE [address] [place], [place] [phone] [facility] [address] [place] [address] Social History Tobacco Use Types Packs/Day Years [...] the patient, asking her to call the [facility] Forms Dept. She requested a letter for her landlord, asking to be allowed to keep an emotional support animal, but she did not specify what type of animal it is. documented in this encounter Plan of Treatment Not on file documented as of this encounter Visit Diagnoses Not on filedocumented in this encounter Care Teams Clerk Telegraph Service Relationship Specialty Start Date End Date Jacqui Velazquez FNP [address] [place] [phone] PCP - General Family Medicine 06/03/22 documented as of this encounter
--- OUTSIDE RECORDS SUMMARY | 2024-11-22 19:08 | XMS_ITS | Encounter Summary ---
Author Organization [email or web address] Address [address] [facility] [address] [place] [address] Care Team Providers Care Twister Hand Name Role Phone [facility] Primary Care Provider [phone] Reason for Visit * Reason Comments Gynecologic Exam Encounter Details Date Type Department Care Team (Latest Contact Info) Description 11/22/2024 10:30 AM EDT Procedure Visit [facility] MED[facility] [address] [place], [place] [phone] Mishel Mishra CNM [address] [place] [address] Cervical cancer screening (Primary Dx); Night sweats; [...] in this encounter Progress Notes * Mishel Mishra CNM - 11/22/2024 10:30 AM EDT Subjective [...] out of work for a while. 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 Notes some night sweats, [...] Screening examination for venereal disease Ordered: 11/22/2024 Syphilis Screen Lab Routine Screening examination for venereal disease Expected: 11/22/2024, Expires: 11/22/2025 documented as of this encounter Procedures Procedure Name Priority Date/Time Associated Diagnosis Comments TSH W/REFLEX TO FT4 Routine 11/22/2024 1 1:18 AM EDT Night sweats documented in this encounter Results * TSH W/Reflex to FT4 (11/22/2024 11:18 AM EDT) TSH reflex Free T4 1.15 0.32 - 4.0 uIU/mL [facility] Blood Venous blood specimen / Unknown 11/22/2024 11:18 AM EDT 11/22/2024 1:15 PM EDT us Mishel MCCAULEY LAB BLOOD ORDERABLES Mariela l Result [facility] [address] [place] [phone] documented in this encounter Visit Diagnoses Diagnosis Cervical cancer screening- Primary Screening for malignant neoplasm of the cervix Night sweats Generalized hyperhidrosis Screening examination for venereal disease Libido, decreased Decreased libido documented in this encounter Additional Health Concerns Assessment Noted Time PHQ-9 Depression Total Score: 5 11/10/19 25 4:20 PM EDT documented as of this encounter Care Teams Twister Hand Relationship Specialty Start Date End Date Jacqui Velazquez FNP [address] [place] [phone] PCP - General Family Medicine 06/03/22 documented as of this encounter
[2024-11-24 12:44] LABS: C. trachomatis RNA TMA NOT DETECTED (NOT DETECTED); N. gonorrhoeae RNA TMA NOT DETECTED (NOT DETECTED)
[2024-11-24 14:38] LABS: Trichomonas (NAAT) NOT DETECTED (NOT DETECTED)
[2024-11-30 14:58] LABS: HPV Genotype 16 Negative (Negative); HPV Genotype 18 Negative (Negative); HPV High Risk Positive (Negative)
== END 2024-11-22 11:09 | disposition home or self-care (01) ==
LOC: HO.LNP 11:08
PROVIDERS: Visit Provider Advanced Practice Midwife
DX: Z12.4 Encounter for screening for malignant neoplasm of cervix (principal); Z11.3 Encounter for screening for infections with a predominantly sexual mode of transmission; R87.810 Cervical high risk human papillomavirus (HPV) DNA test positive
CPT/HCPCS: 87491; 87591; 87626; 87661; 88175

== ENCOUNTER 2024-11-22 11:16 | Outpatient (REF) | payer OTHER, SELFPAY ==
--- OUTSIDE RECORDS SUMMARY | 2024-11-22 13:38 | XMS_ITS | Encounter Summary ---
Author Organization [employer] Address [address] [facility] [address] 7 [place] [address] Care Team Providers Care Vice President Supply Chain Name Role Phone [place] [facility] Primary Care Provider [phone] Reason for Visit * Reason Comments Gynecologic Exam Encounter Details Date Type Department Care Team (Latest Contact Info) Description 11/22/2024 10:30 AM EDT Procedure Visit [facility] [address] [place], [place] [phone] Mishel Mishra CNM [address] [place] [address] Cervical cancer screening (Primary Dx); Night sweats; Screening examination for venereal disease; Libido, decreased Social History Tobacco Use Types Packs/Day Years Used Date Smoking Tobacco: Former Cigarettes Q uit: 02/21/2023 Passive Smoke Exposure: Past Smokeless Tobacco: Never Alcohol Use Standard Drinks/Week Comments Never 0 (1 standard drink = 0.6 oz pur e alcohol) Depression Answer Date Recorded Patient Health Questionnaire-9 Score 5 11/09/2024 Patient Health Questionnaire-9 Score 5 11/09/2024 Last PHQ-9: Questionnaire Data Not on file 0 11/09/2024 Housing Stability Answer Date Recorded What is your housing situation today? I have matti bland 11/01/[address] you li ve. Do you have problems with any of the following? None of the above 11/01/2024 Food Insecurity Answer Date Recorded Within the past 12 months, y ou worried that your food would run out before you got money to buy more: Never True 11/01/2024 Within the past 12 months,th e food you bought just didn't last and you didn't have enough money to get more: Never True 06/2025 Transportation Answer Date Recorded In the past 12 months, has l ack of transportation kept you from medical appts, meetings, work or from getting things needed for daily living? No 11/01/2024 Utilities Answer Date Recorded In the past 12 months, has t he electric, gas, oil or water company threatened to shut off services in your home? No 11/01/2024 Depression Answer Date Recorded Patient Health Questionnaire-2 Score 2 11/09/2024 Internet Access Answer Date Recorded Internet Access Q1 Yes 11/01/2024 Internet Access Q2 Not on file 11/01/2024 Comments No Sex and Gender Information Value Date Recorded Sex Assigned at Female 06/23/2022 10:24 AM EDT Legal Sex Female 10:24 AM EDT Gender Identity Female 06/23/2022 10:24 AM EDT Sexual Orientation Don't know 06/23/2022 10 :24 AM EDT documented as of this encounter Last Filed Vital Signs Vital Sign Reading Time Taken Comments Blood Pressure 122/75 11/22/2024 10:53 AM EDT Pulse 80 11/22/2024 10:53 AM EDT Temperature 36.4 ??C (97.5 ??F) 11/22/2024 10:53 AM E DT Respiratory Rate 16 11/22/2024 10:53 AM EDT Oxygen Saturation 98% 11/22/2024 10:53 AM EDT Inhaled Oxygen Concentration - - Weight 70.8 kg (156 lb) 11/22/2024 10:53 AM EDT Height 167.6 cm (5' 6 ) 11/22/2024 10:53 AM EDT Body Mass Index 25.18 11/22/2024 10:53 AM EDT documented in this encounter Progress Notes * Mishel iMshra CNM - 11/22/2024 10:30 AM EDT Subjective Patient ID: Santos Jules is a 29 y.o. female who presents for pap No pap on file. Thinks last pap a few years ago, no prior abnormal. Received HBV and HPV vaccines. HIV, Hep C neg, Hep B nonimmune with recent labs. 1 AMAB partner x 2y, no safety concerns. Notes lack of interest in sex for past 6 months. Not always able to enjoy sex. No new medications. Started new job in August after being out of work for a while. 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 Notes some night sweats, unintentional weight loss and difficulty fal ling asleep. Not planning in the next year. Using condoms, happy with method. Would like condoms todayand EC for future use. Monthly menses x 5 d. No heavy flow or severe cramping. Review of Systems Constitutional: Positive for unexpected weight change. Endocrine: Positive for heat intolerance. Genitourinary: Negative for dyspareunia, dysuria, frequency, genital sores, hematuria, menstrual problem, pelvic pain, urgency, vaginal bleeding, vaginal discharge and vaginal pain. No abnormal pap, no abnormal bleeding, no breast pain, no breast mass, no nipple discharge Psychiatric/Behavioral: Positive for sleep disturbance. Objective BP 122/75 (BP Location: Left arm, Patient Position: Sitting, BP Cuff Size: Adult) Pulse 80 Temp97.5 ??F (36.4 ??C) (Temporal) Resp 16 Ht 5' 6 (1.676 m) Wt 156 lb (70.8 kg) LMP 11/16/2024 (Approximate) SpO2 98% BMI 25.18 kg/m?? Physical Exam Constitutional: Appearance: Normal appearance. Chest: Breasts: Right: Normal. No swelling, bleeding, inverted nipple, mass, nipple discharge, skin change or tenderness. Left: Normal. No swelling, bleeding, inverted nipple, mass, nipple discharge, skin change or tenderness. Genitourinary: General: Normal vulva. Labia: Right: No rash, tenderness, lesion or injury. Left: No rash, tenderness, lesion or injury. Vagina: Normal. No signs of injury and foreign body. No vaginal discharge, erythema, tenderness, bleeding or lesions. Cervix: No cervical motion tenderness, discharge, friability, lesion, erythema, cervical bleeding or eversion. Uterus: Normal. Not enlarged and not tender. Adnexa: Right adnexa normal and left adnexa normal. Right: No mass, tenderness or fullness. Left: No mass, tenderness or fullness. Lymphadenopathy: Upper Body: Right upper body: No supraclavicular or axillary adenopathy. Left upper body: No supraclavicular or axillary adenopathy. Neurological: Mental Status: She is alert. Psychiatric: Mood and Affect: Mood normal. Behavior: Behavior normal. Assessment/Plan Diagnoses and all orders for this visit: Cervical cancer screening - Pap Smear Repeat 3 years if normal. Will contact with results. Night sweats - TSH W/Reflex to FT4; Future Will check TSH today in light of symptoms. Screening examination for venereal disease - STI testing add on ([place], [place], Trich) - Syphilis Screen; Future Syphilis and pap based STI testing sent. Discussed Hep B non immune. May get Heplisav vaccine at pharmacy. Libido, decreased Reviewed responsive vs spontaneous desire. Partner and she work opposite shifts, and she is not sleeping well, all of which may be factors. Urged to find couple time without sex as a focus. Increase foreplay and partner communication during sex. Discussed sleep issues, reviewed sleep hygiene. TSH checked in light of other symptoms. Likes to read, advised to read Come as You Are by Sunni Rey. Other orders - ulipristal (Ruth) 30 mg tablet; Take one tablet by mouth up to five days after sex. Do not use more than once per menstrual cycle. If repeat dose is needed in same cycle, please contact prescriber. Given condoms. EC sent in for future use. May return any time if interested in another method or thinking about getting . documented in this encounter Plan of Treatment Scheduled Orders Name Type Priority Associated Diagnoses Orde r Schedule Pap Smear Pathology and Cytology Routine Cervical cancer screening Ordered: 11/22/2024 STI testing add on (NG, CT, Trich) Pathology and Cytology Routine Screening examination for venereal disease Ordered: 11/22/2024 TSH W/Reflex to FT4 Lab Routine Night sweats Expected: 11/22/2024 (Approximate), Expires: 11/22/2025 Syphilis Screen Lab Routine Screening examination for venereal disease Expected: 11/22/2024, Expires: 11/22/2025 documented as of this encounter Visit Diagnoses Diagnosis Cervical cancer screening- Primary Screening for malignant neoplasm of the cervix Night sweats Generalized hyperhidrosis Screening examination for venereal disease Libido, decreased Decreased libido documented in this encounter Additional Health Concerns Assessment Noted Time PHQ-9 Depression Total Score: 5 11/10/19 25 4:20 PM EDT documented as of this encounter Care Teams Vice President Supply Chain Relationship Specialty Start Date End Date Jacqui Velazquez FNP [address] [place] [id number] PCP - General Family Medicine 06/03/22 documented as of this encounter
--- OUTSIDE RECORDS SUMMARY | 2024-11-22 13:38 | XMS_ITS | Encounter Summary ---
Author Organization [employer] Address [address] [place] [address] 7 [place] [address] Care Team Providers Care Clothes Drier Assembler Name Role Phone [facility] Primary Care Provider [phone] Encounter Details Date Type Department Care Team ([facility] st Contact Info) Description 12/29/2022 Telephone [facility] [address] [place], [place] [phone] [facility] [address] [place] [address] Social History Tobacco Use Types Packs/Day Years Used Date Smoking Tobacco: Every Day Cigarettes Smokeless Tobacco: Never Comments Unknown Sex and Gender Information Value Date Recorded Sex Assigned at Female 06/23/2022 10:24 AM EDT Legal Sex Female 10:24 AM EDT Gender Identity Female 06/23/2022 10:24 AM EDT Sexual Orientation Don't know 06/23/2022 10 :24 AM EDT documented as of this encounter Miscellaneous Notes * Telephone Encounter - Milana Conley MA - 12/29/2022 4:18 PM EDT A letter was mailed to the patient, asking her to call the [facility] Forms Dept. She requested a letter for her landlord, asking to be allowed to keep an emotional support animal, but she did not specify what type of animal it is. documented in this encounter Plan of Treatment Not on file documented as of this encounter Visit Diagnoses Not on filedocumented in this encounter Care Teams Clothes Drier Assembler Relationship Specialty Start Date End Date Jacqui Velazquez FNP [address] [place] [id number] PCP - General Family Medicine 06/03/22 documented as of this encounter
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
--- OUTSIDE RECORDS SUMMARY | 2024-11-22 13:38 | XMS_ITS | Encounter Summary ---
Author Organization [email or web address] Address [address] [facility] [address] [place] [address] Care Team Providers Care Bed Machine Operator Name Role Phone [place] [facility] Primary Care Provider [phone] Encounter Details Date Type Department Care Team (Latest Contact Info) Description 11/22/2024 Travel Social History Tobacco Use Types Packs/Day Years [...] AM EDT documented as of this encounter Plan of Treatment Not on file documented as of this encounter Visit Diagnoses Not on filedocumented in this encounter Additional Health Concerns Assessment Noted Time PHQ-9 Depression Total Score: 5 11/10/19 25 4:20 PM EDT documented as of this encounter Care Teams Bed Machine Operator Relationship Specialty Start Date End Date Jacqui Velazquez FNP [address] [place] [phone] PCP - General Family Medicine 06/03/22 documented as of this encounter
[2024-11-22 14:20] LABS: TSH reflex Free T4 1.15 uIU/mL (0.32-4.0)
[2024-11-23 08:40] LABS: Syphilis Screen Nonreactive (Nonreactive)
== END 2024-11-22 11:17 | disposition home or self-care (01) ==
LOC: HO.HHCL 11:16
PROVIDERS: Visit Provider Advanced Practice Midwife
DX: R61 Generalized hyperhidrosis (principal); Z11.3 Encounter for screening for infections with a predominantly sexual mode of transmission
CPT/HCPCS: 36415; 84443; 86780